=== PATIENT | female | born 1940 | race Caucasian/White ===

== ENCOUNTER 2023-05-24 21:58 | Inpatient (IN) | payer MEDICARE, OTHER ==
[~2023-05-24] VITALS: Ht 160 cm; Wt 90.0 kg
[~2023-05-24 21:58] MED LIST: LISI20TA28 PO; NOR5T PO
[2023-05-24] MEDS ORDERED: iohexol 350MG/ML 100ml bottle IV ONE (22:07)
--- NOTE | 2023-05-24 22:57 | NUR ---
STROKE NURSE ON FLOOR
[2023-05-24 23:07] LABS: ALANINE AMINOTRANSFERASE 19 U/L (12-78); ALBUMIN 3.8 G/DL (3.4-5.0); ALBUMIN/GLOBULIN RATIO 1.1 (1.1-1.5); ALKALINE PHOSPHATASE 100 IU/L (46-116); ANION GAP 11 (8-16); APTT 29 SECONDS (22-32); ASPARTATE AMINO TRANSFERASE 16 U/L (10-37); BILIRUBIN,TOTAL 0.4 MG/DL (0.1-1.0); BLOOD UREA NITROGEN 20 MG/DL (7-18); BUN/CREATININE RATIO 21.7 (10.0-20.0); CALCIUM 9.7 MG/DL (8.5-10.1); CHLORIDE 107 MMOL/L (99-107); CREATININE 0.92 MG/DL (0.40-0.90); GLUCOSE 128 MG/DL (70-104); POTASSIUM 4.5 MMOL/L (3.5-5.1); SODIUM 145 MMOL/L (135-145); TOTAL CARBON DIOXIDE 27.1 MMOL/L (24-32); TOTAL PROTEIN 7.3 G/DL (6.4-8.2); eGFR 58 ML/MIN
[2023-05-24 23:10] LABS: BASOPHILS # (AUTO) 0.1 X10'3 (0-0.2); BASOPHILS % (AUTO) 1.1 % (0-1); EOSINOPHILS # (AUTO) 0.2 X10'3 (0-0.9); EOSINOPHILS % (AUTO) 2.1 % (0-6); HEMATOCRIT 40.1 % (35.0-45.0); HEMOGLOBIN 13.2 g/dl (12.0-16.0); LYMPHOCYTES # (AUTO) 2.3 X10'3 (1.1-4.8); LYMPHOCYTES % (AUTO) 25.9 % (21-51); MEAN CORPUSCULAR HGB CONC 32.8 g/dL (33.0-36.5); MEAN CORPUSCULAR VOLUME 88.3 FL (78-98); MEAN PLATELET VOLUME 9.6 FL (7.4-10.4); MONOCYTES # (AUTO) 0.8 X10'3 (0-0.9); MONOCYTES % (AUTO) 9.2 % (2-12); NEUTROPHILS # (AUTO) 5.4 X10'3 (1.8-7.7); NEUTROPHILS % (AUTO) 61.7 % (42-75); PLATELET COUNT 165 X10'3 (140-440); RED BLOOD COUNT 4.54 X10'6 (4.20-5.60); RED CELL DISTRIBUTION WIDTH 14.7 % (11.5-14.5); WHITE BLOOD COUNT 8.8 X10'3 (4.5-11.0)
[2023-05-24] MEDS ORDERED: acetaminophen 325mg tablet PO PRN (23:20)
[2023-05-24] MEDS ORDERED: potassium Cl 20 mEq SR tablet PO PRN ×2 (23:20)
[2023-05-24] MEDS ORDERED: magnesium hydroxide 30ml (MOM) UD suspension PO PRN (23:20)
[2023-05-24] MEDS ORDERED: mag hydrox/Alum hydrox/simeth 30ml oral suspension PO PRN (23:20)
[2023-05-24] MEDS ORDERED: potassium Cl 40MEQ/1/2NS 520ml 520 ML IV PRN (23:20)
[2023-05-24] MEDS ORDERED: ondansetron/PF 4mg/2ml inj IV PRN (23:20)
[2023-05-24] MEDS ORDERED: magnesium 4gm in 100ml NS 100 ML IV PRN (23:20)
[2023-05-24] MEDS ORDERED: normal saline 1000ml 1,000 ML IV ONE (23:20)
--- NOTE | 2023-05-24 23:47 | NUR ---
MRI SCREENING FORM FAXED
--- NOTE | 2023-05-25 00:56 | NUR ---
PT AMBULATING TO RESTROOM.
[2023-05-25] MEDS ORDERED: ATOR10TA70 PO (02:15)
[2023-05-25] MEDS ORDERED: AMLO-708 PO (02:15)
[2023-05-25] MEDS ORDERED: LISI40TA13 PO (02:15)
[2023-05-25 03:02] LABS: BASOPHILS # (AUTO) 0.1 X10'3 (0-0.2); BASOPHILS % (AUTO) 0.7 % (0-1); EOSINOPHILS # (AUTO) 0.2 X10'3 (0-0.9); EOSINOPHILS % (AUTO) 1.9 % (0-6); HEMATOCRIT 39.5 % (35.0-45.0); HEMOGLOBIN 12.8 g/dl (12.0-16.0); LYMPHOCYTES # (AUTO) 1.7 X10'3 (1.1-4.8); LYMPHOCYTES % (AUTO) 20.9 % (21-51); MEAN CORPUSCULAR HEMOGLOBIN 29.1 PG (27.0-31.0); MEAN CORPUSCULAR HGB CONC 32.5 g/dL (33.0-36.5); MEAN CORPUSCULAR VOLUME 89.5 FL (78-98); MEAN PLATELET VOLUME 9.6 FL (7.4-10.4); MONOCYTES # (AUTO) 0.7 X10'3 (0-0.9); MONOCYTES % (AUTO) 8.1 % (2-12); NEUTROPHILS # (AUTO) 5.5 X10'3 (1.8-7.7); NEUTROPHILS % (AUTO) 68.4 % (42-75); PLATELET COUNT 153 X10'3 (140-440); RED BLOOD COUNT 4.42 X10'6 (4.20-5.60); RED CELL DISTRIBUTION WIDTH 14.6 % (11.5-14.5); WHITE BLOOD COUNT 8.1 X10'3 (4.5-11.0)
[2023-05-25 03:18] LABS: ALANINE AMINOTRANSFERASE 16 U/L (12-78); ALBUMIN 3.5 G/DL (3.4-5.0); ALKALINE PHOSPHATASE 95 IU/L (46-116); ANION GAP 9 (8-16); ASPARTATE AMINO TRANSFERASE 17 U/L (10-37); BILIRUBIN,TOTAL 0.3 MG/DL (0.1-1.0); BLOOD UREA NITROGEN 18 MG/DL (7-18); BUN/CREATININE RATIO 23.7 (10.0-20.0); CALCIUM 9.3 MG/DL (8.5-10.1); CHLORIDE 107 MMOL/L (99-107); CHOL/HDL RATIO 3.7 (0.00-4.99); CHOLESTEROL 148 MG/DL (0-200); CREATININE 0.76 MG/DL (0.40-0.90); GLUCOSE 118 MG/DL (70-104); HDL CHOLESTEROL 40 MG/DL (35-60); LDL CHOLESTEROL 67 MG/DL (50-100); MAGNESIUM 1.9 MG/DL (1.5-2.4); POTASSIUM 4.3 MMOL/L (3.5-5.1); SODIUM 143 MMOL/L (135-145); TOTAL CARBON DIOXIDE 26.8 MMOL/L (24-32); TOTAL PROTEIN 6.9 G/DL (6.4-8.2); TRIGLYCERIDES 220 MG/DL (20-135); eGFR 73 ML/MIN
--- NOTE | 2023-05-25 03:45 | NUR ---
PT PERSISTENTLY GETTING UP WHILE ATTACHED TO LEADS WITHOUT CALLING FOR RN, PT MOVED TO HOSPITAL BED IN ROOM 03 IN VIEW OF NURSES STATION
[2023-05-25] MEDS ORDERED: aspirin 81mg, enteric-coated 1 TAB TABLET.DR PO SCH (08:00)
[2023-05-25] MEDS: docusate sod 100mg capsule PO SCH ×2 (08:00→20:00)
[2023-05-25] MEDS: K and/or MAG REPLACEMENT MC SCH ×2 (08:00→20:00)
--- NOTE | 2023-05-25 08:30 | NUR ---
Pt up eating breakfast tray at bedside. Pt very active and moving about in room and keeps taking off monitor.
[2023-05-25] MEDS: atorvastatin 20mg tablet PO SCH (10:26)
--- NOTE | 2023-05-25 10:59 | NUR ---
Amendment to prior note, pt is going to MRI, not CT.
--- NOTE | 2023-05-25 10:59 | NUR ---
Pt taken to CT
--- NOTE | 2023-05-25 11:12 | NUR ---
Pts partner of "35 years" called and inquiring pt status. Updated pt currently at MRI. phone numbber left Ruperto Meraz:
--- NOTE | 2023-05-25 12:40 | NUR ---
Pt eating lunch tray at bedside, pt remains calm and cooperative. Pt keeps asking about being DC today. Pt updated hospitalist would eval all of tests and how pt is doing before DC plans would be made.
[2023-05-25 13:48] LABS: HEMOGLOBIN A1C 5.9 % (4.5-6.2)
[2023-05-25] MEDS ORDERED: regadenoson 0.4mg/5ml syringe IV PRN (14:35)
[2023-05-25] MEDS ORDERED: metoprolol tartrate 1mg/ml inj IV PRN (14:35)
[2023-05-25] MEDS ORDERED: aminophylline 250mg/10ml inj. IV PRN (14:35)
[2023-05-25] MEDS ORDERED: nitroGLYCERIN 0.4mg SUBLingual tab SL PRN (14:35)
[2023-05-25 19:25] VITALS: BP 120/89
[2023-05-25] MEDS ORDERED: enoxaparin 40mg/0.4ml syringe SQ SCH (20:00)
[2023-05-25 22:00] VITALS: BP 138/78
[2023-05-26] VITALS (12 sets, daily range): BP systolic 121–164; BP diastolic 73–99
--- NOTE | 2023-05-26 06:12 | NUR ---
Problems reprioritized. Patient report given, questions answered & plan of care reviewed with PRECIOUS Lozoya.
[2023-05-26 06:56] LABS: ALANINE AMINOTRANSFERASE 18 U/L (12-78); ALBUMIN 3.5 G/DL (3.4-5.0); ALBUMIN/GLOBULIN RATIO 1.1 (1.1-1.5); ANION GAP 10 (8-16); ASPARTATE AMINO TRANSFERASE 21 U/L (10-37); BILIRUBIN,TOTAL 0.8 MG/DL (0.1-1.0); BLOOD UREA NITROGEN 15 MG/DL (7-18); CHLORIDE 105 MMOL/L (99-107); CREATININE 0.79 MG/DL (0.40-0.90); GLUCOSE 97 MG/DL (70-104); MAGNESIUM 1.8 MG/DL (1.5-2.4); POTASSIUM 4.1 MMOL/L (3.5-5.1); SODIUM 141 MMOL/L (135-145); TOTAL CARBON DIOXIDE 26.5 MMOL/L (24-32); TOTAL PROTEIN 6.6 G/DL (6.4-8.2); eGFR 70 ML/MIN
[2023-05-26 06:57] LABS: ALKALINE PHOSPHATASE 91 IU/L (46-116)
[2023-05-26 07:12] LABS: BASOPHILS % (AUTO) 0.6 % (0-1); EOSINOPHILS # (AUTO) 0.2 X10'3 (0-0.9); EOSINOPHILS % (AUTO) 2.4 % (0-6); HEMATOCRIT 37.9 % (35.0-45.0); HEMOGLOBIN 12.3 g/dl (12.0-16.0); LYMPHOCYTES # (AUTO) 1.5 X10'3 (1.1-4.8); LYMPHOCYTES % (AUTO) 19.4 % (21-51); MEAN CORPUSCULAR HEMOGLOBIN 28.7 PG (27.0-31.0); MEAN CORPUSCULAR HGB CONC 32.5 g/dL (33.0-36.5); MEAN CORPUSCULAR VOLUME 88.4 FL (78-98); MEAN PLATELET VOLUME 9.5 FL (7.4-10.4); MONOCYTES # (AUTO) 0.8 X10'3 (0-0.9); MONOCYTES % (AUTO) 9.7 % (2-12); NEUTROPHILS # (AUTO) 5.4 X10'3 (1.8-7.7); NEUTROPHILS % (AUTO) 67.9 % (42-75); PLATELET COUNT 151 X10'3 (140-440); RED BLOOD COUNT 4.28 X10'6 (4.20-5.60); RED CELL DISTRIBUTION WIDTH 14.4 % (11.5-14.5); WHITE BLOOD COUNT 7.9 X10'3 (4.5-11.0)
[2023-05-26] MEDS: atorvastatin 20mg tablet PO SCH (07:28)
[2023-05-26] MEDS: docusate sod 100mg capsule PO SCH (07:28)
[2023-05-26] MEDS: K and/or MAG REPLACEMENT MC SCH (08:00)
[2023-05-26] MEDS ORDERED: aspirin 325mg tablet, delayed-release (Ecotrin) PO SCH (08:00)
--- NOTE | 2023-05-26 10:00 | NUR ---
PT OFF THE FLOOR FOR 10 AM VITALS FOR TESTING
--- NOTE | 2023-05-26 11:01 | NUR ---
At approx. 1055, Patient reported her throat feeling tight and unable to swallow well while laying supine on nuclear medicine table. Patient was removed from scanner and assessed by myself. Patient reported her throat felt better once outside scanner. Vital signs obtained with a blood pressure of 141/84 mmHg, 79 beats/min, 95% on RA, 16 breaths/min, with no pain. Patient states now that the right sabianism was painful and that her head felt heavy, at this time a neuro assessment was performed and charted in interventions, which revealed no changes. Patient was asked again how her swallowing was and she reported that it was "better". Will continue to monitor patient throughout scan and patient is aware to report any abnormals as they present. Scan continued.
[2023-05-26] MEDS ORDERED: ASPI-1 PO (13:59)
[2023-05-26] MEDS ORDERED: ATOR20TA66 PO (13:59)
--- NOTE | 2023-05-26 14:39 | NUR ---
ATTEMPTED TO CALL SIGNIFICANT OTHER BUT HE DID NOT ANSWER TWICE.
--- NOTE | 2023-05-26 16:21 | NUR ---
finally got ahold of the pts s/o he will be up to pick her up in a half hour or so
--- NOTE | 2023-05-26 16:31 | NUR ---
per dr griffin, pt does not need to have echo done before dc, she will follow up with dr palomino outpatient. pt is good to be dc, per md meds will be called into pharmacy
--- NOTE | 2023-05-26 18:03 | NUR ---
PT IS STABLE FOR DC, ALL MEDS TAKEN HOME WITH PT BY S/O, IV DC CANNULA INTACT, ALL DC INFO GONE OVER WITH PT AND SIGNED PT WAS ALERT AND ORIENTATED, DC INFO WENT OVER WITH S/O WHO SHE LIVES WITH. MEDS CALLED INTO PHARMACY AND ALL BELONGINGS TAKEN. PT WAS WHEELED DOWN TO THE LOBBY AND LEFT IN A PRIVATE VEHICLE.
== END 2023-05-26 17:15 | disposition home or self-care (01) | DRG 66 ==
LOC: ER 22:01 → ED HOLD 23:34 → ORTHO 4S 05-25 19:23
PROVIDERS: ADMIT Family Medicine; ATTEND Family Medicine
PROC: B3251ZZ Computerized Tomography (CT Scan) of Bilateral Common Carotid Arteries using Low Osmolar Contrast (ICD-10-PCS; 2023-05-24)
PROC: B32G1ZZ Computerized Tomography (CT Scan) of Bilateral Vertebral Arteries using Low Osmolar Contrast (ICD-10-PCS; 2023-05-24)
PROC: B32R1ZZ Computerized Tomography (CT Scan) of Intracranial Arteries using Low Osmolar Contrast (ICD-10-PCS; 2023-05-24)
PROC: B3281ZZ Computerized Tomography (CT Scan) of Bilateral Internal Carotid Arteries using Low Osmolar Contrast (ICD-10-PCS; 2023-05-24)
PROC: 4A02XM4 Measurement of Cardiac Total Activity, External Approach (ICD-10-PCS; principal; 2023-05-26)
PROC: 3E073KZ Introduction of Other Diagnostic Substance into Coronary Artery, Percutaneous Approach (ICD-10-PCS; 2023-05-26)
DX: I63.89 Other cerebral infarction (principal); R47.81 Slurred speech; I65.23 Occlusion and stenosis of bilateral carotid arteries; I10 Essential (primary) hypertension; R29.700 NIHSS score 0; E78.5 Hyperlipidemia, unspecified; Z79.82 Long term (current) use of aspirin; Z83.3 Family history of diabetes mellitus; Z86.73 Personal history of transient ischemic attack (TIA), and cerebral infarction without residual deficits; Z90.710 Acquired absence of both cervix and uterus; Z79.899 Other long term (current) drug therapy
CPT/HCPCS: 36415; 70450; 70496; 70498; 70551; 71045; 78452; 80053; 80061; 82948; 83036; 83735; 85025; 85610; 85730; 87081; 92508; 92616; 93017; 93880; 97116; 97161; 97530; 99285; A9500; G0378; J1650; J2405; J2785; J3490; J7030; Q9967

== ENCOUNTER 2024-06-18 16:03 | Outpatient (CLI) | payer MEDICARE, OTHER, SELFPAY ==
[~2024-06-18 16:03] MED LIST changes: +AMLO-708 PO; +ASPI-1264 PO; +ATOR20TA PO; -LISI20TA28 PO; +LISI40TA13 PO; -NOR5T PO
== END 2024-06-18 23:59 | disposition home or self-care (01) ==
LOC: VAS 16:03
PROVIDERS: ATTEND Surgery
DX: I65.23 Occlusion and stenosis of bilateral carotid arteries (principal)
CPT/HCPCS: 93880